=== PATIENT | female | born 1960 | race Caucasian/White ===

== ENCOUNTER 2018-10-14 08:59 | Emergency (ER) | payer BC ==
[2018-10-14 09:47] VITALS: BP 119/81
--- NOTE | 2018-10-14 10:20 | UC ---
Skin Complaint HPI - HPI Summary HPI Summary: 58-year-old woman comes in with a chief complaint of a painful rash. Patient initially had some pain in the right sacral and upper thigh area. Then later she noticed a rash on the right side of the sacrum. The and another area of rash recurred on the inside of the upper right leg. This morning she noticed another area of rash on the upper anterior right thigh. No fevers or chills. The pain is an aching burning pain. Rest the leg feels normal. - History of Current Complaint Chief Complaint: UCSkin Time Seen by Provider: 10/14/18 10:11 Stated Complaint: RIGHT LEG/BACK SKIN CONCERN Pain Intensity: 2 - Allergy/Home Medications Allergies/Adverse Reactions: Allergies Allergy/AdvReac Type Severity Reaction Status Date / Time moxifloxacin [From Avelox] Allergy Hives Verified 10/14/18 09:48 Penicillins Allergy Hives Verified 10/14/18 09:48 Home Medications: Home Medications Anastrozole [Arimidex] 1 mg PO DAILY 10/14/18 [History Confirmed 10/14/18] Atorvastatin* [Lipitor*] 10 mg PO 1700 10/14/18 [History Confirmed 10/14/18] Cholecalciferol TAB* [Vitamin D TAB*] 1,000 unit PO DAILY 10/14/18 [History Confirmed 10/14/18] Cyanocobalamin (Vitamin B-12) [Vitamin B-12] 1,000 mcg PO DAILY 10/14/18 [ History Confirmed 10/14/18] Multivit with Calcium,Iron,Min [Multiple Vitamins For Women] 1 each PO DAILY 08/28 [History Confirmed 10/14/18] Telmisartan (NF) [Micardis (NF)] 20 mg PO DAILY 10/14/18 [History Confirmed 08/28] PMH/Surg Hx/FS Hx/Imm Hx Previously Healthy: Yes Endocrine History: Dyslipidemia - Surgical History Surgical History: Yes Surgery Procedure, Year, and Place: R lumpectomy - Family History Known Family History: Positive: Non-Contributory - Social History Alcohol Use: Occasionally Substance Use Type: None Smoking Status (MU): Never Smoked Tobacco Review of Systems All Other Systems Reviewed And Are Negative: Yes Constitutional: Positive: Negative Skin: Positive: Other - see hpi Eyes: Positive: Negative ENT: Positive: Negative Respiratory: Positive: Negative Cardiovascular: Positive: Negative Gastrointestinal: Positive: Negative Motor: Positive: Negative Neurovascular: Positive: Negative Musculoskeletal: Positive: Negative Neurological: Positive: Negative Psychological: Positive: Negative Is Patient Immunocompromised?: No Physical Exam Triage Information Reviewed: Yes Appearance: Well-Appearing, No Pain Distress, Well-Nourished Vital Signs: Initial Vital Signs Temp 97.5 F 10/14/18 09:26 Pulse 76 10/14/18 09:26 Resp 16 10/14/18 09:26 BP 119/81 10/14/18 09:26 Pulse Ox 97 10/14/18 09:26 Vital Signs Reviewed: Yes Eye Exam: Normal Eyes: Positive: Conjunctiva Clear Neck: Positive: Supple Respiratory: Positive: No respiratory distress Musculoskeletal Exam: Normal Musculoskeletal: Positive: Strength Intact, ROM Intact Neurological: Positive: Alert, Muscle Tone Normal Psychological: Positive: Age Appropriate Behavior Skin: Positive: Other - There is a slightly raised erythematous rash on the right side of the sacrum 6 cm x 3 cm. Same type rash right upper anterior thigh 4 cm x 2 cm. Same rash be aspect of the upper thigh 10 cm x 4 cm. No vesicle seen no drainage. Course/Dx - Course Course Of Treatment: I do not see any vesicles on the rash. However the distribution of the rash and the description of the pain associated with the rash is consistent with shingles. We will treat with valacyclovir. Patient has an appointment already scheduled with her primary care doctor on October 17, 2018. I also let the patient know that if she got worse she needed to get reevaluated sooner. - Diagnoses Provider Diagnosis: Shingles Discharge - Sign-Out/Discharge Documenting (check all that apply): Patient Departure All imaging exams completed and their final reports reviewed: No Studies - Discharge Plan Condition: Stable Disposition: HOME Prescriptions: Valacyclovir HCl [Valacyclovir] 1 gm PO TID #21 tab Patient Education Materials: Shingles (ED) Referrals: Veronica Mckoy MD [Primary Care Provider] - Additional Instructions: FOLLOW UP WITH YOUR DOCTOR ON SCHEDULED. GET REEVALUATED SOONER IF WORSE; FEVER, YOU FEEL ILL OR ANY QUESTIONS OR CONCERNS. - Billing Disposition and Condition Condition: STABLE Disposition: Home
== END 2018-10-14 10:26 | disposition home or self-care (01) ==
LOC: UCCORT 08:59
DX: B02.9 Zoster without complications (principal); Z88.0 Allergy status to penicillin; Z88.1 Allergy status to other antibiotic agents; E78.5 Hyperlipidemia, unspecified
CPT/HCPCS: 99202; G0463